=== PATIENT | female | born 1955 | race Caucasian/White ===

== ENCOUNTER → 2023-09-06 07:32 | Outpatient (REF) | payer OTHER, SELFPAY | LOC: RAD 07:32 | PROVIDERS: ATTENDING PHYSICIAN Internal Medicine Gastroenterology; FAMILY PHYSICIAN Internal Medicine | DX: R10.13 Epigastric pain (principal) | CPT/HCPCS: 78264; A9541 ==

== ENCOUNTER → 2023-09-21 14:30 | Outpatient (REF) | payer OTHER, SELFPAY | LOC: HWRAD 14:30 | PROVIDERS: ATTENDING PHYSICIAN Internal Medicine Pulmonary Disease; FAMILY PHYSICIAN Internal Medicine; REFERRING PHYSICIAN Student in an Organized Health Care Education/Training Program | DX: R06.09 Other forms of dyspnea (principal); M81.0 Age-related osteoporosis without current pathological fracture | CPT/HCPCS: 71250; 77080; 77081 ==

== ENCOUNTER 2024-01-11 17:19 | Emergency (ER) | payer OTHER, SELFPAY ==
[2024-01-11 17:20] VITALS: BMI 39.2
[2024-01-11 17:33] VITALS: BP 156/83
--- NOTE | 2024-01-11 18:12 | ED.GENMED ---
History of Present Illness
General
Chief Complaint: Chest Pain
Source: patient
Exam Limitations: none
Time Seen by Provider: 01/11/24 17:53
Travel History
Have you had any contact with someone who has COVID-19?: No
Do you have any symptoms of coronavirus? Fever > 100 degrees, chills, cough, shortness of breath, sore throat, loss of taste or smell, muscle aches, or headache?: No
History of Present Illness
History of Present Illness:
This is a 68 year old female that comes in with c/o chest pain. States that she was in the infusion room and getting an infusion of Bisphosphonate and she started with this stabbing chest pain. States that she told the girl and she slowed down the
drip and the pain went away. States that she went home and laid down and when she got up she had chest and jaw pain. State that this lasted for about 20 min. States that she was told that this can give joint and bone pain as this is a side affect
of the infusion and it can mimic chest pain. States that she is always SOB. Denies any fever, chills, abd pain, nausea, vomiting, diarrhea, headache, dizziness, urinary burning
Past History
Past History
ED Past Medical History: HTN, Hypercholesterolemia, Other (Obesity, Chronic bronchitis, Gastritis, Sleep apnea) and Other (Angiomyolipoma)
ED Past Surgical History: Appendectomy, Cholecystectomy, Gynecological (Left tube and ovary removed), Orthopedic (Back surgery) and Other (Thyroidectomy)
Social History
Tobacco: Former smoker
Alcohol: None
Drug: None
Personal:
Living: with family
Employment: Retired
Review of Systems
Review of Systems
All Other Systems: ROS reviewed and negative except as documented in HPI and ROS
Constitutional: Reports no symptoms; Denies fever or chills
EENT: Reports no symptoms
Respiratory: Reports trouble breathing (Always SOB); Denies cough
Cardiac: Reports chest pain
ABD/GI: Reports no symptoms; Denies abdominal pain, nausea, vomiting or diarrhea
: Reports no symptoms; Denies dysuria, frequency or urgency
Musculoskeletal: Reports no symptoms
Skin: Reports no symptoms
Neurological: Reports no symptoms; Denies dizzy or headache
Psychiatric: Reports no symptoms
Phy Exam
General Physical Exam
General Presentation: well appearing and no apparent distress
General age: appears stated age
General Skin: warm and dry
General Habitus: elderly
General Mental: alert
General Hydration: dry mucous membranes
ENT Exam
ENT Exam: TM's normal, pharynx normal and neck supple
Eye Exam
Eye Exam: EOMI
Cardiovascular Exam
Cardiovascular Exam: regular rate/rhythm, no edema, no murmur and normal peripheral pulses
Pulmonary Exam
Pulmonary Exam: lungs clear, no respiratory distress, no rales, chest non tender, no crackles, no rhonchi, no wheezing and no cough
Gastrointestinal Exam
Gastrointestinal Exam: normal bowel sounds, non tender, soft, no organomegaly, no pulsatile mass, non distended and other (Obese)
Musculoskeletal Exam
Musculoskeletal Exam: full ROM and no edema
Skin Exam
Skin Exam: normal color, warm/dry, no rash and no petechia
Scores
Heart Score for Chest Pain Patients
STEMI patient?: Not applicable
Course
Orders/Labs/Results
Orders:
Orders
01/11/24 17:21
ECG [Electrocardiogram (*1)] Urgent
Reason for Study: Chest Pain
EKG- Treatment ONCE
01/11/24 18:12
0.9% Sodium Chloride 500 ml [Nss] 500 ml IV BOLUS
01/11/24 18:21
Complete Blood Count/With Diff Urgent
Comprehensive Metabolic Panel Urgent
Troponin I Urgent
Abnormal Lab Results
01/11/24
18:21
WBC 12.3 H 10^3/uL
(4.8-10.8)
Hct 36.4 L %
(37.0-47.0)
MPV 11.1 H fL
(7.4-10.4)
Abs Immat Gran (auto) 0.1 H 10^3/uL
(0-0.05)
Absolute Lymphs (auto) 4.3 H 10^3/uL
(1.2-3.4)
Absolute Monos (auto) 1.2 H 10^3/uL
(0.1-0.6)
Monocytes % 10.0 H %
(1.7-9.3)
Carbon Dioxide 21 L mmol/L
(22-30)
Glucose 107 H mg/dl
(70-99)
01/11/24 18:21
01/11/24 18:21
Leukocytosis, Glucose nonfasting. Troponin <0.012
Vital Signs
Initial and Last Documented VS:
Initial Vital Signs
Temp Pulse Resp BP Pulse Ox
98.2 F 82 16 156/83 97
01/11/24 17:33 01/11/24 17:33 01/11/24 17:33 01/11/24 17:33 01/11/24 17:33
Last Documented Vital Signs
Temp Pulse Resp BP Pulse Ox
98.2 F 85 23 141/79 97
01/11/24 17:33 01/11/24 19:30 01/11/24 19:30 01/11/24 19:33 01/11/24 17:33
MDM/Problems Addressed
Differential Diagnosis Includes:
Reaction to IV infusion, Coronary syndrome
MDM/Problems Addressed:
This is a 68 year old female that comes in with c/o chest pain and jaw pain. States that this started when she was getting her infusion and they slowed the rate down and it stopped. Patient went home and when she got up she had pain again in the
chest and jaw. States that she was told that this can happen and it can mimic a heart attack.
Will get labs.
Back into see patient. Patient is up and dressed. States that she is feeling fine. States that her Infusion was at 11am this morning. Explained to patient that her Troponin is normal and it has been over 6 hours since she started with pain. This is
most likely a reaction to the Mediation. Patient to follow up as directed. Return with increased pain or any other concerns.
Chronic conditions affecting care:
NA
Acute Exacerbation and/or Progression of Chronic Illness:
NA
*Pulse Oximetry
Patient hypoxic: no
*EKG
Interpreted by ED Provider?: Yes
Heart Rate: 80
Rate: normal
Rhythm: sinus
[place]: normal axis
Interval: normal interval
QRS Pattern: normal QRS
Ischemia: no ischemia
*Client Support Representative Interpretation
Rate: normal
Heart Rate: 86
Rhythm: sinus
*Critical Care Note
Total Time (30-74mins, 75-104mins- exclusive of procedures): Not Applicable
ED Attending Note
-
Portions of this chart may have been created with voice recognition software.� Occasional wrong word or��sound alike� substitutions may have occurred due to the inherent limitations of voice recognition software.
Discharge Plan
Departure
Patient Disposition: Home (Routine Discharge)
Date of Disposition: 01/11/24
Time of Disposition: 19:39
Patient with high blood pressure during this ER visit?: Yes
Condition: Good
Covid-19: Not Applicable
Discharge Problem:
Medication adverse effect
Instructions: Side effects from medicines, BLOOD PRESSURE
Prescriptions:
No Action
sucralfate 1 GM/10 ML suspension
1 gm PO QID 10 Days Qty: 40 0RF
prednisone 50 mg tablet
50 mg PO DAILY Qty: 5 0RF
Referrals:
Calvin Vaughan MD [Family Provider] - Follow up in 2-3 days
Activity Restrictions/Additional Instructions:
As discussed, your blood work shows that your WBC are slightly elevated. Your Troponin is normal. This is most likely an adverse reaction to the infusion. Please follow up with the family doctor in the next 2-3 days for recheck. IF YOU HAVE
INCREASED OR CHANGING PAIN, OR YOU HAVE ANY OTHER CONCERNS PLEASE RETURN TO THE EMERGENCY ROOM.
Interventions
Interventions:
ED- Fall Risk Assessment Last Done: 01/11/24 18:03
ED- Cardiac Assessment Last Done: 01/11/24 18:03
Discharge Date and Time
Print Language: SPANISH
[2024-01-11 18:29] LABS: % Basophils 0.4 % (0-2); % Eosinophils 2.8 % (0-6); % Immature Granulocytes 0.4 % (0-0.5); % Lymphocytes 34.6 % (20.5-51.1); % Neutrophils 51.8 % (42.2-75.2); Absolute Basophils 0.1 10^3/uL (0-0.2); Absolute Eosinophils 0.3 10^3/uL (0-0.7); Absolute Immature Granulocytes 0.1 10^3/uL (0-0.05); Absolute Lymphocytes 4.3 10^3/uL (1.2-3.4); Absolute Monocytes 1.2 10^3/uL (0.1-0.6); Absolute Neutrophils 6.4 10^3/uL (1.4-6.5); Hematocrit 36.4 % (37.0-47.0); Hemoglobin 12.7 g/dL (12.0-16.0); Mean Corp Hgb Conc. 34.9 g/dL (33.0-37.0); Mean Corpuscular Hgb 29.5 pg (27.0-31.0); Mean Corpuscular Volume 84.7 fL (81.0-99.0); Mean Platelet Volume 11.1 fL (7.4-10.4); Nucleated Red Blood Cells % 0 %; Platelet Count 362 10^3/uL (130-400); Red Cell Dist. Width 13.4 % (11.5-14.5); White Blood Cell Count 12.3 10^3/uL (4.8-10.8)
[2024-01-11 18:45] LABS: ALT (SGPT) 16 U/L (0-35); AST (SGOT) 22 U/L (14-36); Albumin 4.7 g/dl (3.5-5.0); Alkaline Phosphatase 87 U/L (38-126); Blood Urea Nitrogen 13 mg/dl (7-17); Carbon Dioxide 21 mmol/L (22-30); Chloride 102 mmol/L (98-107); Estimated Creatinine Clearance 94 ml/min; Glucose 107 mg/dl (70-99); Potassium 4.7 mmol/L (3.5-5.1); Sodium 136 mmol/L (135-145); Total Bilirubin 0.3 mg/dl (0.2-1.3); Total Protein 7.5 g/dl (6.3-8.2); eGFR > 60.00
[2024-01-11 18:53] LABS: Troponin I < 0.012 ng/ml
[2024-01-11 19:33] VITALS: BP 141/79
== END 2024-01-11 19:52 | disposition home or self-care (01) ==
LOC: EMR 17:19
PROVIDERS: Clinical Nurse Specialist Family Health; EMERGENCY PHYSICIAN Emergency Medicine; FAMILY PHYSICIAN Internal Medicine
DX: R07.89 Other chest pain (principal); T45.8X5A Adverse effect of other primarily systemic and hematological agents, initial encounter; Z87.891 Personal history of nicotine dependence; I10 Essential (primary) hypertension
CPT/HCPCS: 99285; 80053; 84484; 85025; 93005

== ENCOUNTER → 2024-05-18 08:01 | Outpatient (REF) | payer OTHER, SELFPAY | LOC: HWRAD 08:01 | PROVIDERS: ATTENDING PHYSICIAN Internal Medicine Gastroenterology; FAMILY PHYSICIAN Internal Medicine | DX: E66.9 Obesity, unspecified (principal) | CPT/HCPCS: 76700 ==

== ENCOUNTER → 2024-06-07 07:42 | Outpatient (REF) | payer OTHER, SELFPAY | LOC: RAD 07:42 | PROVIDERS: ATTENDING PHYSICIAN Physician Assistant; FAMILY PHYSICIAN Internal Medicine | DX: M25.512 Pain in left shoulder (principal) | CPT/HCPCS: 76881 ==

== ENCOUNTER 2024-07-14 07:16 | Day surgery (SDC) | payer OTHER, SELFPAY ==
[2024-07-10 11:27] LABS: Hematocrit 40.1 % (37.0-47.0); Hemoglobin 13.6 g/dL (12.0-16.0); Mean Corp Hgb Conc. 33.9 g/dL (33.0-37.0); Mean Corpuscular Hgb 29.8 pg (27.0-31.0); Mean Corpuscular Volume 87.9 fL (81.0-99.0); Mean Platelet Volume 11.2 fL (7.4-10.4); Platelet Count 324 10^3/uL (130-400); Red Blood Cell Count 4.56 10^6/uL (4.20-5.40); Red Cell Dist. Width 13.5 % (11.5-14.5); White Blood Cell Count 13.1 10^3/uL (4.8-10.8)
[2024-07-10 13:42] VITALS: BMI 43.4
[2024-07-14] VITALS (8 sets, daily range): BP systolic 110–172; BP diastolic 66–92; BMI 43.4
[2024-07-14] MEDS: NORMOSOL-R/PLASMALYTE-A 1000 IV (11:00)
[2024-07-14] MEDS: ZOFRAN 4 MG IV (16:22)
== END 2024-07-14 17:40 | disposition home or self-care (01) ==
LOC: SDS 07:16
PROVIDERS: ATTENDING PHYSICIAN Specialist; FAMILY PHYSICIAN Internal Medicine
DX: M75.122 Complete rotator cuff tear or rupture of left shoulder, not specified as traumatic (principal); M75.42 Impingement syndrome of left shoulder
CPT/HCPCS: 29827; 36415; 85027; 93005

== ENCOUNTER → 2024-12-12 08:53 | Outpatient (REF) | payer OTHER, SELFPAY | LOC: HWRCS 08:53 | PROVIDERS: ATTENDING PHYSICIAN Internal Medicine Cardiovascular Disease; FAMILY PHYSICIAN Internal Medicine | DX: R07.9 Chest pain, unspecified (principal); R06.02 Shortness of breath; I10 Essential (primary) hypertension; E78.00 Pure hypercholesterolemia, unspecified | CPT/HCPCS: 93306 ==

== ENCOUNTER → 2024-12-26 07:31 | Outpatient (REF) | payer OTHER, SELFPAY | LOC: RCS 07:31 | PROVIDERS: ATTENDING PHYSICIAN Internal Medicine Cardiovascular Disease; FAMILY PHYSICIAN Internal Medicine | DX: R07.9 Chest pain, unspecified (principal); R06.02 Shortness of breath; I10 Essential (primary) hypertension; E78.00 Pure hypercholesterolemia, unspecified | CPT/HCPCS: 93017 ==

== ENCOUNTER 2025-01-16 11:47 | Emergency (ER) | payer OTHER, SELFPAY ==
[2025-01-16 12:15] VITALS: BMI 39.6
[2025-01-16 12:17] VITALS: BP 163/94
[2025-01-16 12:19] VITALS: BP 163/94
--- NOTE | 2025-01-16 12:24 | ED.GENMED ---
History of Present Illness
General
Chief Complaint: Abdominal Pain
Time Seen by Provider: 01/16/25 12:11
History of Present Illness
History of Present Illness:
69-year-old female with history of hypertension and chronic bronchitis presents to the emergency department for evaluation of epigastric pain and left flank pain ongoing for the past 2 days associated with 'bubbles in the urine' and intermittent
right upper quadrant pain as well. Has been vomiting and unable to keep anything down for the past 24 hours. Denies any chest pain or shortness of breath. Has night sweats but no fever. No dysuria or hematuria.
Past History
Past History
ED Past Medical History: HTN, Hypercholesterolemia, Other (Obesity, Chronic bronchitis, Gastritis, Sleep apnea) and Other (Angiomyolipoma)
ED Past Surgical History: Appendectomy, Cholecystectomy, Gynecological (Left tube and ovary removed), Orthopedic (Back surgery) and Other (Thyroidectomy)
Social History
Tobacco: Former smoker
Alcohol: None
Drug: None
Personal:
Living: with family
Employment: Retired
Review of Systems
Review of Systems
Allergies reviewed?: Yes
All Other Systems: ROS reviewed and negative except as documented in HPI and ROS
Phy Exam
Physical Exam
Physical Exam:
GEN: Well appearing, NAD, WDWN
HEENT: Oral mucosa moist, no scleral icterus
Cardiac: Regular rate
Lung: No respiratory distress, no tachypnea
Abdomen: Soft, grossly nontender to palpation
MSK: No gross deformity or injuries
Skin: Good color, no pallor or jaundice, no rashes
Neuro: AO x3, moves all extremities freely
Psych: Calm, cooperative
Course
Orders/Labs/Results
Orders:
Orders
01/16/25 12:23
CT Abd/Pel (IV only)-DH only Urgent
Comment:
Reason For Exam: L flank pain, epigastric pain
01/16/25 12:30
Complete Blood Count/With Diff Urgent
Comprehensive Metabolic Panel Urgent
Lipase Urgent
01/16/25 13:32
Urinalysis Reflex To Culture Urgent
Date Specimen was Collected: 01/16/25
Time Specimen was Collected: 13:31
Urine Microscopic Reflex Cult Urgent
Urine Culture Urgent
PRIETO Source: U
Specimen Description:
Date Specimen was Collected: 01/16/25
Time Specimen was Collected: :
Abnormal Lab Results
01/16/25 01/16/25
12:30 13:32
WBC 16.6 H 10^3/uL
(4.8-10.8)
MPV 10.5 H fL
(7.4-10.4)
Abs Immat Gran (auto) 0.1 H 10^3/uL
(0-0.05)
Absolute Neuts (auto) 10.7 H 10^3/uL
(1.4-6.5)
Absolute Lymphs (auto) 4.2 H 10^3/uL
(1.2-3.4)
Absolute Monos (auto) 1.4 H 10^3/uL
(0.1-0.6)
BUN 20 H mg/dl
(7-17)
Glucose 108 H mg/dl
(70-99)
Calcium 10.6 H mg/dl
(8.4-10.2)
Ur Occult Blood Reflex 2+ A
(Negative)
Leukocyte Esterase Rfl 2+ A
(Negative)
Urine Bacteria (Reflex) Few A
(Negative)
01/16/25 12:30
01/16/25 12:30
Vital Signs
Initial and Last Documented VS:
Initial Vital Signs
Temp Pulse Resp Pulse Ox
98.0 F 95 16 99
01/16/25 11:50 01/16/25 11:50 01/16/25 11:50 01/16/25 11:50
Last Documented Vital Signs
Temp Pulse Resp BP Pulse Ox
98.0 F 86 16 163/94 97
01/16/25 11:50 01/16/25 14:18 01/16/25 11:50 01/16/25 12:19 01/16/25 14:18
MDM/Problems Addressed
MDM/Problems Addressed:
Etiology to patient's symptoms at this time is not clear however gastritis is the likely etiology given her presentation. Imaging was unremarkable. Will trial PPIs and Carafate
*Pulse Oximetry
Patient hypoxic: no
Comment: 97% RA
*Critical Care Note
Total Time (30-74mins, 75-104mins- exclusive of procedures): Not Applicable
ED Attending Note
-
Portions of this chart may have been created with voice recognition software.� Occasional wrong word or��sound alike� substitutions may have occurred due to the inherent limitations of voice recognition software.
Discharge Plan
Departure
Patient Disposition: Home (Routine Discharge)
Date of Disposition: 01/16/25
Time of Disposition: 14:49
Patient with high blood pressure during this ER visit?: No
Discharge Problem:
Acute upper abdominal pain
Instructions: Abdominal Pain
Prescriptions:
New
pantoprazole 40 mg tablet,delayed release (DR/EC)
40 mg PO DAILY Qty: 14 0RF
sucralfate [Carafate] 1 gram tablet
1 g PO AC Qty: 30 0RF
No Action
amlodipine 5 mg tablet
5 mg PO DAILY
Breztri Aerosphere 160-9-4.8 mcg/actuation HFA aerosol inhaler
2 inh INHALATION HS
lorazepam 0.5 mg tablet
0.5 mg PO BID PRN (Reason: anxiety)
multivitamin Tablet
1 tab PO DAILY
calcium carbonate [Calcium 600] 600 mg calcium (1,500 mg) Tablet
600 mg PO DAILY
pantoprazole 40 mg tablet,delayed release (DR/EC)
40 mg PO DAILY PRN (Reason: indigestion)
losartan 100 mg tablet
100 mg PO DAILY
cholestyramine (with sugar) 4 gram Powder In Packet
1 ea PO DAILY PRN (Reason: upset stomach)
cholecalciferol (vitamin D3) [Vitamin D3] 25 mcg (1,000 unit) Tablet
25 mcg PO DAILY
oxycodone 20 mg tablet
20 mg PO Q6 PRN (Reason: psin)
biotin 1 mg Capsule
1 mg PO DAILY
cyanocobalamin-cobamamide [B-12 Plus] 5,000-100 mcg Tablet, Sublingual
1 tab SUBLINGUAL DAILY
Referrals:
Calvin Vaughan MD [Family Provider, Internal Medicine]
Interventions
Interventions:
*Risk Screen - Suicide Last Done: 01/16/25 11:50
*General Assessment Last Done: 01/16/25 12:19
*Neglect/Abuse Screening Last Done: 01/16/25 11:50
*ED- Fall Risk Assessment Last Done: 01/16/25 12:19
HF-Ziaiyt-Fjnttsttlp Assessment Last Done: 01/16/25 12:30
Discharge Date and Time
Print Language: CITIZEN OF [place]
[2025-01-16 12:45] LABS: % Basophils 0.2 % (0-2); % Eosinophils 0.8 % (0-6); % Immature Granulocytes 0.4 % (0-0.5); % Lymphocytes 25.2 % (20.5-51.1); % Monocytes 8.7 % (1.7-9.3); % Neutrophils 64.7 % (42.2-75.2); Absolute Eosinophils 0.1 10^3/uL (0-0.7); Absolute Immature Granulocytes 0.1 10^3/uL (0-0.05); Absolute Lymphocytes 4.2 10^3/uL (1.2-3.4); Absolute Monocytes 1.4 10^3/uL (0.1-0.6); Absolute Neutrophils 10.7 10^3/uL (1.4-6.5); Hematocrit 41.5 % (37.0-47.0); Hemoglobin 14.1 g/dL (12.0-16.0); Mean Corpuscular Hgb 28.8 pg (27.0-31.0); Mean Corpuscular Volume 84.9 fL (81.0-99.0); Mean Platelet Volume 10.5 fL (7.4-10.4); Nucleated Red Blood Cells % 0 %; Platelet Count 397 10^3/uL (130-400); Red Blood Cell Count 4.89 10^6/uL (4.20-5.40); Red Cell Dist. Width 13.2 % (11.5-14.5); White Blood Cell Count 16.6 10^3/uL (4.8-10.8)
[2025-01-16 12:58] LABS: ALT (SGPT) 16 U/L (0-35); AST (SGOT) 17 U/L (14-36); Albumin 4.9 g/dl (3.5-5.0); Alkaline Phosphatase 74 U/L (38-126); Blood Urea Nitrogen 20 mg/dl (7-17); Calcium 10.6 mg/dl (8.4-10.2); Carbon Dioxide 24 mmol/L (22-30); Chloride 105 mmol/L (98-107); Estimated Creatinine Clearance 109 ml/min; Glucose 108 mg/dl (70-99); Lipase 199 U/L (23-300); Potassium 4.1 mmol/L (3.5-5.1); Sodium 138 mmol/L (135-145); Total Bilirubin 0.4 mg/dl (0.2-1.3); eGFR > 60.00
[2025-01-16 13:40] LABS: Urine Albumin Negative (Neg - Trace); Urine Bilirubin Negative (Negative); Urine Character Clear (Clear); Urine Color Yellow; Urine Glucose Negative (Negative); Urine Ketone Negative (Negative); Urine Leukocyte 2+ (Negative); Urine Nitrite Negative (Negative); Urine Occult Blood 2+ (Negative); Urine Urobilinogen Negative (Neg - 1+)
[2025-01-16 14:13] VITALS: BP 164/86
[2025-01-16 14:47] LABS: Urine Bacteria Few (Negative); Urine Red Blood Cell 0-2 /HPF (0-2); Urine White Cell 0-2 /HPF (0-5)
[2025-01-16 15:03] VITALS: BP 168/106
[2025-01-16 15:05] VITALS: BP 157/93
== END 2025-01-16 15:40 | disposition home or self-care (01) ==
LOC: EMR 11:47
PROVIDERS: Physician Assistant; EMERGENCY PHYSICIAN Emergency Medicine; FAMILY PHYSICIAN Internal Medicine
DX: R10.10 Upper abdominal pain, unspecified (principal); I10 Essential (primary) hypertension; Z87.891 Personal history of nicotine dependence
CPT/HCPCS: 99285; 74177; 80053; 81003; 81015; 83690; 85025; 87086; Q9967

== ENCOUNTER → 2025-02-16 07:20 | Outpatient (REF) | payer OTHER, SELFPAY | LOC: RCS 07:20 | PROVIDERS: ATTENDING PHYSICIAN Internal Medicine Cardiovascular Disease; FAMILY PHYSICIAN Internal Medicine | DX: R42 Dizziness and giddiness (principal); R06.09 Other forms of dyspnea | CPT/HCPCS: 78452; 93017; A9500; J2785 ==

== ENCOUNTER 2025-04-25 06:22 | Day surgery (SDC) | payer OTHER, SELFPAY | END 2025-04-25 09:19 | disposition home or self-care (01) | LOC: GI 06:22 | PROVIDERS: ATTENDING PHYSICIAN Internal Medicine Gastroenterology | DX: Z12.11 Encounter for screening for malignant neoplasm of colon (principal); D12.3 Benign neoplasm of transverse colon; D12.8 Benign neoplasm of rectum; K64.9 Unspecified hemorrhoids; Z86.0100 Personal history of colon polyps, unspecified | CPT/HCPCS: 45380; 88305 ==